=== PATIENT | female | born 1940 | race Two or more races ===

== ENCOUNTER 2017-09-03 12:43 | Emergency (ER) | payer MEDICARE, OTHER ==
[~2017-09-03] VITALS: Ht 152.4 cm; Wt 86.2 kg
[2017-09-03] MEDS ORDERED: POTASSIUM CHLO10 ME3 ORAL (12:47)
[2017-09-03] MEDS ORDERED: NORCO 5-325 TA1 EACH ORAL (12:47)
[2017-09-03] MEDS ORDERED: OMEPRAZOLE20 M2 ORAL (12:47)
[2017-09-03] MEDS ORDERED: METFORMIN HCL850 M1 ORAL (12:47)
[2017-09-03] MEDS ORDERED: GABAPENTIN300 MG ORAL (12:47)
[2017-09-03] MEDS ORDERED: TRAMADOL HCL50 MG ORAL (12:47)
[2017-09-03] MEDS ORDERED: FUROSEMIDE40 MG ORAL (12:47)
[2017-09-03] MEDS ORDERED: Albuterol/Ipratropium 3ml neb HHN ONE (13:00)
--- NOTE | 2017-09-03 13:52 | Diagnostic Imaging Report ---
EXAM: XR Chest, 1 View CLINICAL HISTORY: Shortness of breath TECHNIQUE: Frontal view of the chest. COMPARISON: No relevant prior studies available. FINDINGS: Lungs: Unremarkable. The lungs appear clear. No confluent pulmonary opacities. Pleural space: Unremarkable. No pneumothorax. Heart: Unremarkable. No cardiomegaly. Mediastinum: Unremarkable. Bones/joints: Unremarkable. Tubes, lines and devices: EKG leads overlie the thorax. IMPRESSION: No acute findings.
[2017-09-03] MEDS ORDERED: Meclizine 25mg tab ORAL ONE (14:00)
[2017-09-03] MEDS ORDERED: Aspirin Baby 81mg ORAL ONE (14:00)
[2017-09-03 14:05] LABS: BASOPHILS % (AUTO) 1.2 % (0.0-2.0); HEMATOCRIT 41.6 % (37.0-47.0); HEMOGLOBIN 12.3 G/DL (12.0-16.0); LYMPHOCYTES % (AUTO) 14.6 % (20.0-45.0); MEAN CORPUSCULAR VOLUME 83 FL (80-99); MONOCYTES % (AUTO) 5.1 % (1.0-10.0); NEUTROPHILS % (AUTO) 77.1 % (45.0-75.0); PLATELET COUNT 427 K/UL (150-450); RED CELL DISTRIBUTION WIDTH 14.5 % (11.6-14.8); WHITE BLOOD COUNT 8.6 K/UL (4.8-10.8)
[2017-09-03 14:13] LABS: ANION GAP 12 mmol/L (5-15); BLOOD UREA NITROGEN 22 mg/dL (7-18); CALCIUM 8.8 MG/DL (8.5-10.1); CARBON DIOXIDE 23 MMOL/L (21-32); CHLORIDE 107 MMOL/L (98-107); CREATININE 1.6 MG/DL (0.55-1.30); POTASSIUM 4.9 MMOL/L (3.5-5.1); SODIUM 142 MMOL/L (136-145)
[2017-09-03 14:25] LABS: ALANINE AMINOTRANSFERASE 22 U/L (12-78); ALBUMIN 3.5 G/DL (3.4-5.0); ALBUMIN/GLOBULIN RATIO 0.9 (1.0-2.7); ALKALINE PHOSPHATASE 70 U/L (46-116); ASPARTATE AMINO TRANSFERASE 16 U/L (15-37); BILIRUBIN,TOTAL 0.4 MG/DL (0.2-1.0); CKMB 0.7 NG/ML (0.0-3.6); CREATINE KINASE 15 U/L (26-308); PHOSPHORUS 2.6 MG/DL (2.5-4.9)
[2017-09-03] MEDS ORDERED: Solu-MEDROL 125mg Inj IVP ONE (14:30)
--- NOTE | 2017-09-03 14:37 | Emergency Room Report ---
History of Present Illness General Chief Complaint: General Complaint Source: EMS Present Illness HPI Patient is 77-year-old female who presented after increased dizziness as well as generalized weakness. Patient reports having increased difficulty breathing. She states that she been having similar type leg swelling for several days. Patient reports having increased generalized pain. The patient was brought in by EMS. Allergies: Coded Allergies: No Known Allergies (Unverified , 09/03/17) Patient History Past Medical History: see triage record Reviewed Nursing Documentation: PMH: Agreed; PSxH: Agreed Nursing Documentation-PMH Hx Hypertension: Yes Hx Diabetes: Yes Review of Systems All Other Systems: negative except mentioned in HPI Physical Exam Vital Signs Date Time Temp Pulse Resp B/P (MAP) Pulse Ox O2 Delivery O2 Flow Rate FiO2 09/03/17 12:38 98.2 78 20 127/78 98 Nasal Cannula 6.0 98.2 Sp02 EP Interpretation: reviewed, normal General Appearance: normal inspection, well appearing, no apparent distress, alert, GCS 15, Chronically Ill Head: atraumatic ENT: normal ENT inspection, hearing grossly normal, normal voice Neck: normal inspection, full range of motion, supple, no bony tend Respiratory: normal inspection, no retraction, wheezing Cardiovascular #1: regular rate, rhythm, edema Gastrointestinal: normal inspection, normal bowel sounds, non tender, soft, no guarding, no hernia Genitourinary: no CVA tenderness Musculoskeletal: normal inspection, back normal, normal range of motion Neurologic: normal inspection, alert, oriented x3, responsive, speech normal Psychiatric: normal inspection, judgement/insight normal, mood/affect normal Skin: normal inspection, normal color, no rash, other - bilateral lower leg swelling Medical Decision Making Diagnostic Impression: Primary Impression: Dizziness Additional Impression: Acute exacerbation of CHF (congestive heart failure) ER Course Patient presented for dizziness. Differential included but was not limited to anemia, pneumonia, pneumothorax, myocardial infarction, pericardial effusion, congestive heart failure, acidosisBecause of complexity of patient's case laboratory testing and imaging studies were ordered. Because of complexity of patient's case laboratory testing and imaging studies were ordered.EKG interpreted by me showed normal sinus rhythm with a rate of 61 with slight QRS widening with a right bundle branch block. There were no acute ST or T wave changes notedThe patient was given breathing treatment as well as meclizine for dizziness.The patient was noted to have persistent generalized weakness. The patient was the noted to have some evidence of congestive heart failure. The patient be transferred to [facility] Labs Test 09/03/17 13:30 White Blood Count 8.6 K/UL (4.8-10.8) Red Blood Count 5.00 M/UL (4.20-5.40) Hemoglobin 12.3 G/DL (12.0-16.0) Hematocrit 41.6 % (37.0-47.0) Mean Corpuscular Volume 83 FL (80-99) Mean Corpuscular Hemoglobin 24.7 PG (27.0-31.0) Mean Corpuscular Hemoglobin Concent 29.6 G/DL (32.0-36.0) Red Cell Distribution Width 14.5 % (11.6-14.8) Platelet Count 427 K/UL (150-450) Mean Platelet Volume 6.9 FL (6.5-10.1) Neutrophils (%) (Auto) 77.1 % (45.0-75.0) Lymphocytes (%) (Auto) 14.6 % (20.0-45.0) Monocytes (%) (Auto) 5.1 % (1.0-10.0) Eosinophils (%) (Auto) 2.0 % (0.0-3.0) Basophils (%) (Auto) 1.2 % (0.0-2.0) Sodium Level 142 MMOL/L (136-145) Potassium Level 4.9 MMOL/L (3.5-5.1) Chloride Level 107 MMOL/L (98-107) Carbon Dioxide Level 23 MMOL/L (21-32) Anion Gap 12 mmol/L (5-15) Blood Urea Nitrogen 22 mg/dL (7-18) Creatinine 1.6 MG/DL (0.55-1.30) Estimat Glomerular Filtration Rate mL/min (>60) Glucose Level 174 MG/DL (74-106) Lactic Acid Level 3.20 mmol/L (0.4-2.0) Calcium Level 8.8 MG/DL (8.5-10.1) Phosphorus Level 2.6 MG/DL (2.5-4.9) Magnesium Level 2.0 MG/DL (1.8-2.4) Total Bilirubin 0.4 MG/DL (0.2-1.0) Aspartate Amino Transf (AST/SGOT) 16 U/L (15-37) Alanine Aminotransferase (ALT/SGPT) 22 U/L (12-78) Alkaline Phosphatase 70 U/L (46-116) Total Creatine Kinase 15 U/L (26-308) Creatine Kinase MB 0.7 NG/ML (0.0-3.6) Creatine Kinase MB Relative Index 4.6 Troponin I 0.002 ng/mL (0.000-0.056) Pro-B-Type Natriuretic Peptide 1938 pg/mL (0-125) Total Protein 7.3 G/DL (6.4-8.2) Albumin 3.5 G/DL (3.4-5.0) Globulin 3.8 g/dL Albumin/Globulin Ratio 0.9 (1.0-2.7) Lipase 317 U/L (73-393) EKG Diagnostic Results Rate: normal Rhythm: NSR ST Segments: no acute changes Rhythm Strip Diag. Results EP Interpretation: yes Rhythm: NSR, no PVC's, no ectopy Last Vital Signs Date Time Temp Pulse Resp B/P (MAP) Pulse Ox O2 Delivery O2 Flow Rate FiO2 09/03/17 12:38 98.2 78 20 127/78 98 Nasal Cannula 6.0 98.2 Status: unchanged Disposition: XFER SHT-TRM HOSP Condition: Serious Jake Alvarez MD Sep 03, 2017 14:37
[2017-09-03 15:17] LABS: APPEARANCE,URINE CLEAR; BILIRUBIN, URINE NEGATIVE (NEGATIVE); COLOR,URINE PALE YELLOW; GLUCOSE, URINE (UA) NEGATIVE (NEGATIVE); KETONES,URINE NEGATIVE (NEGATIVE); LEUKOCYTE ESTERASE ,URINE 2+ (NEGATIVE); NITRITE,URINE NEGATIVE (NEGATIVE); PH,URINE 7 (4.5-8.0); PROTEIN,URINE NEGATIVE (NEGATIVE); UROBILINOGEN,URINE NORMAL MG/DL (0.0-1.0)
[2017-09-03 16:00] VITALS: BP 153/62
[2017-09-03 18:02] VITALS: BP 134/77
[2017-09-03 19:30] VITALS: BP 132/77
[2017-09-03 19:45] VITALS: BP 132/77
--- NOTE | 2017-09-07 15:27 | Cardiology Report ---
APPROVED REPORT EKG Measurement Heart [id number] Normal sinus rhythm Possible Left atrial enlargement Right bundle branch block Septal infarct, age undetermined Lateral infarct, age undetermined Abnormal ECG
== END 2017-09-03 19:45 | disposition other institution (70) ==
LOC: EDBD 12:43 → EMR 15:00
DX: R42 Dizziness and giddiness (principal); I50.9 Heart failure, unspecified; R53.1 Weakness; R06.00 Dyspnea, unspecified; R52 Pain, unspecified; I10 Essential (primary) hypertension; E11.9 Type 2 diabetes mellitus without complications
CPT/HCPCS: 36415; 71045; 80053; 81003; 82550; 82553; 83605; 83690; 83735; 83880; 84100; 84484; 85025; 87040; 93005; 94640; 94664; 99285; J1940; J2930; J7620